=== PATIENT | male | born 1970 | race Caucasian/White ===

== ENCOUNTER 2024-08-11 15:12 | Outpatient (REF) | payer MEDICAID, SELFPAY ==
[2024-08-11 17:24] LABS: Erythrocyte Sedimentation Rate 6 MM/HR (0-15)
[2024-08-12 04:38] LABS: HIV AB/AG Nonreactive (Nonreactive); HIV Num 1 0.04 S/CO (0.00-0.99)
[2024-08-13 01:33] LABS: Lyme Abs Screen <0.90 index
[2024-08-13 10:39] LABS: Anti Nuclear Antibody Screen NEGATIVE (NEGATIVE)
[2024-08-17 21:48] LABS: Treponema pallidum Ab FTA ABS Nonreactive (Nonreactive)
== END 2024-08-11 15:13 | disposition home or self-care (01) ==
LOC: HO.LAB 15:12
PROVIDERS: PCP Physician Assistant Medical; Visit Provider Psychiatry & Neurology Neurology
DX: G93.40 Encephalopathy, unspecified (principal)
CPT/HCPCS: 36415; 85652; 86038; 86617; 86618; 86780; 87389